=== PATIENT | female | born 1990 | race Caucasian/White ===

== ENCOUNTER 2016-12-05 18:47 | Emergency (ER) | payer MEDICAID ==
[~2016-12-05] VITALS: Ht 170.2 cm; Wt 65.0 kg
[~2016-12-05 18:47] MED LIST: ZOFR4TAB3 SL
[2016-12-05 18:48] VITALS: BP 148/87; PULSE 84; RESP 16; TEMP 98.2; O2SAT 98
== END 2016-12-05 21:32 | disposition left against medical advice (07) ==
LOC: NED 18:47
DX: R30.0 Dysuria (principal); Z53.21 Procedure and treatment not carried out due to patient leaving prior to being seen by health care provider
CPT/HCPCS: 99281

== ENCOUNTER 2016-12-07 13:32 | Emergency (ER) | payer MEDICAID, OTHER ==
[~2016-12-07] VITALS: Ht 167.6 cm; Wt 68.0 kg
--- NOTE | 2016-12-07 13:41 | PD ---
Physical Exam Time Seen by Provider: 13:40 Narrative 26 y/o female here with lower pelvic pain, nausea, vomiting for 2 weeks. Vital signs reviewed. Seen at triage desk. Awaiting bed placement. [facility] Medical Record Reviewed: Yes Supervised Visit with BERNICE: Prince Steven Dec 07, 2016 13:41
--- NOTE | 2016-12-07 14:22 | PD ---
HPI Chief Complaint: Automotive Salesperson Problem/Complaint Time Seen by Provider: 13:59 Travel History International Travel<30 days: No Contact w/Intl Traveler<30days: No Traveled to known affect area: No History of Present Illness HPI The patient is a 26-year-old female who presents to the emergency department for pelvic pain and discharge. The patient is a 2 week history of intermittent pelvic pain which is located in the lower pelvis, nonradiating, sharp to dull, and associated with vaginal discharge. She describes a vaginal discharge is white, milky, with a foul smell. She does have a history of bacterial vaginosis. The patient states she recently had a D&C 4 months ago, was prescribed antibiotics, however, did not take the antibiotics after the . The patient does have a history of bacterial vaginosis with similar symptoms. She denies any dysuria, frequency, or urgency. She also complains of occasional painful intercourse on the left aspect of the pelvis. Symptoms are mild to moderate, there are no current alleviating or exacerbating factors. The patient is Ab1 miscarriage 1. PFSH Past Medical History Diminished Hearing: No Gastrointestinal Disorders: Yes (COLONOSCOPY, CROHNS DISEASE) Psychiatric: Yes (ASPERGERS) Immunizations Current: Yes Tetanus Vaccination: > 5 Years Influenza Vaccination: No ?: Not LMP: IRREGULAR : 3 Para: 1 Miscarriage: 1 Past Surgical History Section: Yes (X2) Social History Alcohol Use: Yes Tobacco Use: Yes Substance Use: No (PT DENIES) Allergies-Medications (Allergen,Severity, Reaction): Coded Allergies: Compazine (Verified Allergy, Intermediate, rash, 12/07/16) Tegretol (Verified Allergy, Unknown, rash, 12/07/16) Clonidine (Verified Adverse Reaction, Intermediate, DIZZY, 12/07/16) DIZZY Reported Meds & Prescriptions Reported Meds & Active Scripts Active No Active Prescriptions or Reported Medications Review of Systems Except as stated in HPI: all other systems reviewed are Neg General / Constitutional: No: Fever, Chills Genitourinary: Positive: Pelvic Pain, Discharge, No: Urgency, Frequency, Dysuria, Vaginal Bleeding Physical Exam Narrative GENERAL: Awake, alert, nontoxic-appearing 26 year-old female who appears her stated age and is in no acute respiratory distress. SKIN: Focused skin assessment warm/dry. HEAD: Atraumatic. Normocephalic. EYES: No injection or drainage. ENT: Moist mucous membranes. NECK: Trachea midline. No JVD. GASTROINTESTINAL: Abdomen soft, non-tender, nondistended. Back: No CVA tenderness. Genitourinary: The exam was performed in the presence of a female nurse. External examination reveals no rashes or lesions. Speculum examination reveals white discharge in vaginal vault which is thin, white. Cervix is closed. No cervical motion tenderness. No adnexal tenderness. MUSCULOSKELETAL: No obvious deformities. No clubbing. No cyanosis. No edema. NEUROLOGICAL: Awake and alert. No obvious cranial nerve deficits. Motor grossly within normal limits. Normal speech. PSYCHIATRIC: Appropriate mood and affect; insight and judgment normal. Data Data Last Documented VS Vital Signs Date Time Temp Pulse Resp B/P Pulse Ox O2 Delivery O2 Flow Rate FiO2 12/07/16 14:05 16 Orders Gc And Chlamydia Pcr (12/07/16 14:15) Wet Prep Profile (12/07/16 14:15) Urinalysis - C+S If Indicated (12/07/16 14:15) Ed Urine Pregnancytest Poc (12/07/16 14:15) Urine Culture (12/07/16 14:10) Labs Laboratory Tests Test 12/07/16 14:10 Urine Color YELLOW Urine Turbidity HAZY Urine pH 6.5 Urine Specific [place] 1.023 Urine Protein TRACE mg/dL Urine Glucose (UA) NEG mg/dL Urine Ketones NEG mg/dL Urine Occult Blood NEG Urine Nitrite NEG Urine Bilirubin NEG Urine Urobilinogen LESS THAN 2.0 MG/DL Urine Leukocyte Esterase SMALL Urine RBC 1 /hpf Urine WBC 18 /hpf Urine Squamous Epithelial 1 /hpf Cells Urine Amorphous Sediment RARE Urine Bacteria FEW /hpf Urine Mucus FEW /lpf Microscopic Urinalysis Comment CULTURE INDICATED Clue Cells (Wet Prep) PRESENT Vaginal Trichomonas (Wet Prep) NONE SEEN Vaginal Yeast (Wet Prep) NONE SEEN MDM Medical Decision Making Medical Screen Exam Complete: Yes Emergency Medical Condition: Yes Medical Record Reviewed: Yes Interpretation(s) Laboratory Tests Test 12/07/16 14:10 Urine Color YELLOW Urine Turbidity HAZY Urine pH 6.5 Urine Specific [place] 1.023 Urine Protein TRACE mg/dL Urine Glucose (UA) NEG mg/dL Urine Ketones NEG mg/dL Urine Occult Blood NEG Urine Nitrite NEG Urine Bilirubin NEG Urine Urobilinogen LESS THAN 2.0 MG/DL Urine Leukocyte Esterase SMALL Urine RBC 1 /hpf Urine WBC 18 /hpf Urine Squamous Epithelial 1 /hpf Cells Urine Amorphous Sediment RARE Urine Bacteria FEW /hpf Urine Mucus FEW /lpf Microscopic Urinalysis Comment CULTURE INDICATED Clue Cells (Wet Prep) PRESENT Vaginal Trichomonas (Wet Prep) NONE SEEN Vaginal Yeast (Wet Prep) NONE SEEN Differential Diagnosis Differential diagnosis includes PID, cervicitis, UTI, ectopic , , vaginitis, bacterial vaginosis, Trichomonas. Narrative Course A UA was sent to lab and bedside UA test was obtained. A pelvic exam was performed and wet prep and gonorrhea/chlamydia were sent to lab. UA reveals 18 WBCs, otherwise unremarkable. Wet prep is positive for clue cells, therefore, checked patient will be treated with Flagyl and Bactrim. The patient states that antibiotics make her nauseated, she is requesting Zofran. Therefore, the patient will be prescribed Zofran. She is advised to follow-up with a card checker. Return if symptoms worsen or progress. Diagnosis Primary Impression: BV (bacterial vaginosis) Additional Impression: UTI (urinary tract infection) Qualified Code: N39.0 - Urinary tract infection without hematuria, site unspecified Patient Instructions: General Instructions Additional Instructions: Medications as directed. No alcohol while taking Flagyl. Plenty fluids to stay hydrated. Follow-up with your primary physician and/or card checker. Med/Other Pt SpecificInfo: Prescription(s) given Scripts Ondansetron Odt (Zofran Odt)4 Mg Tab4 Mg SL Q6HR PRN (Nausea/Vomiting) #5 TAB Ref 0 Prov:Kamron Laurent MD 12/07/16 Metronidazole (Flagyl)500 Mg [id number] Mg PO BID 7 Days Ref 0 Prov:Kamron Laurent MD 12/07/16 Sulfamethoxazole-Trimethoprim (Bactrim DS)800-160 Mg Tab1 Tab PO BID #6 TAB Ref 0 Prov:Kamron Laurent MD 12/07/16 Disposition: 01 DISCHARGE HOME Condition: Stable Kamron Laurent MD Dec 07, 2016 14:22
[2016-12-07 14:53] LABS: BACTERIA, URINE FEW /hpf; BLOOD, URINE NEG (NEG); COMMENT (UR) CULTURE INDICATED; CULTURE IF INDICATED CULTURE INDICATED; GLUCOSE,URINE NEG (NEG); KETONE, URINE NEG (NEG); MUCUS URINE FEW /lpf (OCC); NITRITE,URINE NEG (NEG); PH, URINE 6.5 (5.0-8.5); SQUAMOUS EPITHELIAL CELL URINE 1 /hpf (0-5); URINE COLOR YELLOW (YELLW/STRAW)
[2016-12-07] MEDS ORDERED: BACT800T5 PO (16:07)
[2016-12-07] MEDS ORDERED: METR-1 PO (16:07)
[2016-12-07] MEDS ORDERED: ZOFR4TAB3 SL (16:07)
[2016-12-07 16:57] LABS: CHLAMYDIA PCR NOT DETECTED (NOT DETECT); NEISSERIA PCR NOT DETECTED (NOT DETECT)
== END 2016-12-07 16:47 | disposition home or self-care (01) ==
LOC: NEPD 13:32
DX: N76.0 Acute vaginitis (principal); N39.0 Urinary tract infection, site not specified; B95.1 Streptococcus, group B, as the cause of diseases classified elsewhere; Z72.0 Tobacco use
CPT/HCPCS: 81001; 84703; 86403; 87086; 87210; 87491; 87591; 99284

== ENCOUNTER 2017-02-17 12:57 | Emergency (ER) | payer OTHER ==
[~2017-02-17 12:57] MED LIST changes: +BACT800T5 PO; +METR-1 PO
[2017-02-17 13:00] VITALS: BP 109/70; PULSE 67; RESP 15; TEMP 98.2; O2SAT 99
--- NOTE | 2017-02-17 13:18 | PD ---
Physical Exam Date Seen by Provider: Feb 17, 2017 Time Seen by Provider: 13:17 Narrative 26-year-old female presents to emergency department with reports of 8 weeks , with nausea, vomiting, and not being able to keep anything down. Patient also concerned about abdominal rash which may be an allergy to a cat. Patient has no wheezing or shortness of breath. Vital signs are stable. Patient is awaiting medical bed placement. Data Data Last Documented VS Vital Signs Date Time Temp Pulse Resp B/P (MAP) Pulse Ox O2 Delivery O2 Flow Rate FiO2 02/17/17 13:00 98.2 67 15 109/70 (83) 99 MDM Medical Record Reviewed: Yes Supervised Visit with BERNICE: Yes Condition: Stable Bo Jiménez Feb 17, 2017 13:18
[2017-02-17] MEDS ORDERED: SODIUM CHLOR 0.9% 1000 ML INJ 1,000 ML IV SCH (14:59)
[2017-02-17] MEDS ORDERED: ONDANSETRON HCL 4 MG/2 ML VIAL IVP ONE (15:00)
--- NOTE | 2017-02-17 15:19 | PD ---
HPI Chief Complaint: Related Problem Time Seen by Provider: 14:53 Travel History International Travel<30 days: No Contact w/Intl Traveler<30days: No Traveled to known affect area: No History of Present Illness HPI PATIENT STATES 8 WEEKS PREG OR SO, NO OB DOC YET, BUT IS HERE DUE TO CONSTANT NAUSEA, OCCASIONAL VOMITING WITHOUT DIARRHEA, OR ABD PAIN. DENIES UTI SX WELL. PATIENT DENIES FEVER WELL...NO ALLEVIATING/AGGRAVATING FACTORS. PFSH Past Medical History Diminished Hearing: No Gastrointestinal Disorders: Yes (COLONOSCOPY, CROHNS DISEASE) Psychiatric: Yes (ASPERGERS) Immunizations Current: Yes ?: : 3 Para: 1 Miscarriage: 1 Past Surgical History Section: Yes (X2) Social History Alcohol Use: Yes Tobacco Use: Yes Substance Use: No (PT DENIES) Allergies-Medications (Allergen,Severity, Reaction): Coded Allergies: prochlorperazine (Unverified Allergy, Intermediate, rash, 01/11/17) carbamazepine (Unverified Allergy, Unknown, rash, 01/11/17) penicillin G (Verified Allergy, Unknown, 02/17/17) clonidine (Unverified Adverse Reaction, Intermediate, DIZZY, 01/11/17) DIZZY Reported Meds & Prescriptions Reported Meds & Active Scripts Active Zofran Odt (Ondansetron Odt) 4 Mg Tab 4 Mg SL Q6HR PRN Review of Systems Except as stated in HPI: all other systems reviewed are Neg Gastrointestinal: Positive: Nausea Physical Exam Narrative GENERAL: SKIN: Warm and dry. HEAD: Atraumatic. Normocephalic. EYES: Pupils equal and round. No scleral icterus. No injection or drainage. ENT: No nasal bleeding or discharge. Mucous membranes pink and moist. NECK: Trachea midline. No JVD. CARDIOVASCULAR: Regular rate and rhythm. RESPIRATORY: No accessory muscle use. Clear to auscultation. Breath sounds equal bilaterally. GASTROINTESTINAL: Abdomen soft, non-tender, nondistended. MUSCULOSKELETAL: Extremities without clubbing, cyanosis, or edema. No obvious deformities. NEUROLOGICAL: Awake and alert. No obvious cranial nerve deficits. Motor grossly within normal limits. Five out of 5 muscle strength in the arms and legs. Normal speech. PSYCHIATRIC: Appropriate mood and affect; insight and judgment normal. Data Data Last Documented VS Vital Signs Date Time Temp Pulse Resp B/P (MAP) Pulse Ox O2 Delivery O2 Flow Rate FiO2 02/17/17 13:00 98.2 67 15 109/70 (83) 99 Orders Orders Beta Hcg (Quant/Titer) (02/17/17 14:59) Complete Blood Count With Diff (02/17/17 14:59) Comprehensive Metabolic Panel (02/17/17 14:59) Lipase (02/17/17 14:59) Urinalysis - C+S If Indicated (02/17/17 14:59) Iv Access Insert/Monitor (02/17/17 14:59) Ecg Monitoring (02/17/17 14:59) Oximetry (02/17/17 14:59) Ondansetron Inj (Zofran Inj) (02/17/17 15:00) Sodium Chlor 0.9% 1000 Ml Inj (Ns 1000 M (02/17/17 14:59) Labs Laboratory Tests Test 02/17/17 15:10 02/17/17 15:15 White Blood Count 8.0 TH/MM3 Red Blood Count 4.15 MIL/MM3 Hemoglobin 12.8 GM/DL Hematocrit 38.7 % Mean Corpuscular Volume 93.3 FL Mean Corpuscular Hemoglobin 30.8 PG Mean Corpuscular Hemoglobin Concent 33.1 % Red Cell Distribution Width 12.1 % Platelet Count 196 TH/MM3 Mean Platelet Volume 9.7 FL Neutrophils (%) (Auto) 77.6 % Lymphocytes (%) (Auto) 15.6 % Monocytes (%) (Auto) 5.9 % Eosinophils (%) (Auto) 0.6 % Basophils (%) (Auto) 0.3 % Neutrophils # (Auto) 6.2 TH/MM3 Lymphocytes # (Auto) 1.2 TH/MM3 Monocytes # (Auto) 0.5 TH/MM3 Eosinophils # (Auto) 0.1 TH/MM3 Basophils # (Auto) 0.0 TH/MM3 CBC Comment DIFF FINAL Differential Comment Blood Urea Nitrogen 10 MG/DL Creatinine 0.67 MG/DL Random Glucose 108 MG/DL Total Protein 6.9 GM/DL Albumin 3.4 GM/DL Calcium Level 8.6 MG/DL Alkaline Phosphatase 50 U/L Aspartate Amino Transf (AST/SGOT) 13 U/L Alanine Aminotransferase (ALT/SGPT) 22 U/L Total Bilirubin 0.3 MG/DL Sodium Level 139 MEQ/L Potassium Level 3.5 MEQ/L Chloride Level 107 MEQ/L Carbon Dioxide Level 25.2 MEQ/L Anion Gap 7 MEQ/L Estimat Glomerular Filtration Rate 106 ML/MIN Lipase 96 U/L Human Chorionic Gonadotropin, Quant [id number] MIU/ML Urine Color YELLOW Urine Turbidity CLOUDY Urine pH 5.5 Urine Specific [place] 1.026 Urine Protein TRACE mg/dL Urine Glucose (UA) NEG mg/dL Urine Ketones NEG mg/dL Urine Occult Blood NEG Urine Nitrite NEG Urine Bilirubin NEG Urine Urobilinogen LESS THAN 2.0 MG/DL Urine Leukocyte Esterase SMALL Urine RBC LESS THAN 1 /hpf Urine WBC 3 /hpf Urine Squamous Epithelial Cells 70 /hpf Urine Bacteria OCC /hpf Urine Mucus MOD /lpf Microscopic Urinalysis Comment CULT NOT INDICATED MDM Medical Decision Making Medical Screen Exam Complete: Yes Emergency Medical Condition: Yes Medical Record Reviewed: Yes Differential Diagnosis HELLP V PREECLAMPSIA V ECLAMPSIA V RELATED NAUSEA V HYPEREMESIS GRAVIDARUM Narrative Course PATIENT ON EVALUATION WAS FOUND TO HAVE NL LFT'S , NL RENAL, NO ELECTROLYTES, PATIENT IS MOST LIKELY EXPERIENCING RELATED NAUSEA Diagnosis Primary Impression: RELATED NAUSEA Patient Instructions: General Instructions, Nausea and Vomiting in ( ED) Scripts Ondansetron Odt (Zofran Odt) 4 Mg Tab 4 MG SL Q6HR Y for Nausea/Vomiting, #30 TAB 0 Refills Prov: Enmanuel Acuña MD 02/17/17 Disposition: 01 DISCHARGE HOME Condition: Stable Enmanuel Acuña MD Feb 17, 2017 15:19
[2017-02-17 15:38] LABS: AUTOMATED NEUTROPHIL # 6.2 TH/MM3 (1.8-7.7); BASOPHIL % 0.3 % (0.0-2.0); EOSINOPHIL # 0.1 TH/MM3 (0-0.4); EOSINOPHIL % 0.6 % (0.0-4.0); HEMATOCRIT 38.7 % (35.0-46.0); HEMO FLAGS DIFF FINAL; LYMPH % 15.6 % (9.0-44.0); LYMPHOCYTE # 1.2 TH/MM3 (1.0-4.8); MEAN CELL VOLUME 93.3 FL (80.0-100.0); MEAN CORPUSCULAR HEMOGLOBIN 30.8 PG (27.0-34.0); MEAN CORPUSCULAR HGB CONC 33.1 % (32.0-36.0); MONO % 5.9 % (0.0-8.0); NEUT % 77.6 % (16.0-70.0); PLATELET COUNT 196 TH/MM3 (150-450); RED BLOOD COUNT 4.15 MIL/MM3 (4.00-5.30); RED CELL DISTRIBUTION WIDTH 12.1 % (11.6-17.2)
[2017-02-17 15:40] LABS: BACTERIA, URINE OCC /hpf; BLOOD, URINE NEG (NEG); COMMENT (UR) CULT NOT INDICATED; CULTURE IF INDICATED CULT NOT INDICATED; GLUCOSE,URINE NEG (NEG); KETONE, URINE NEG (NEG); MUCUS URINE MOD /lpf (OCC); NITRITE,URINE NEG (NEG); PH, URINE 5.5 (5.0-8.5); SQUAMOUS EPITHELIAL CELL URINE 70 /hpf (0-5); URINE COLOR YELLOW (YELLW/STRAW)
[2017-02-17 16:05] LABS: ALT (GPT) 22 U/L (10-53); ANION GAP 7 MEQ/L (5-15); AST (GOT) 13 U/L (15-37); BICARBONATE 25.2 MEQ/L (21.0-32.0); BLOOD UREA NITROGEN 10 MG/DL (7-18); CHLORIDE 107 MEQ/L (98-107); GLOMERULAR FILTRATION RATE 106 ML/MIN (>89); POTASSIUM 3.5 MEQ/L (3.5-5.1); SODIUM (NA) 139 MEQ/L (136-145)
[2017-02-17] MEDS ORDERED: ZOFR4TAB3 SL (16:11)
[2017-02-17 16:22] LABS: ALKALINE PHOSPHATASE 50 U/L (45-117); BETA HCG QUANT 163190 MIU/ML (0-5); TOTAL BILIRUBIN ADULT 0.3 MG/DL (0.2-1.0)
== END 2017-02-17 16:59 | disposition home or self-care (01) ==
LOC: NEPD 12:57
DX: O21.9 Vomiting of pregnancy, unspecified (principal); O99.611 Diseases of the digestive system complicating pregnancy, first trimester; K50.90 Crohn's disease, unspecified, without complications; F84.5 Asperger's syndrome; Z3A.08 8 weeks gestation of pregnancy; Z34.91 Encounter for supervision of normal pregnancy, unspecified, first trimester
CPT/HCPCS: 80053; 81001; 83690; 84702; 85025; 96374; 99283; J2405; J7030

== ENCOUNTER 2017-03-04 19:23 | Emergency (ER) | payer OTHER ==
[~2017-03-04] VITALS: Ht 167.6 cm; Wt 66.0 kg
[~2017-03-04 19:23] MED LIST changes: -BACT800T5 PO; -METR-1 PO
[2017-03-04 19:28] VITALS: BP 117/69; PULSE 83; RESP 16; TEMP 98.9; O2SAT 98
[2017-03-04] MEDS ORDERED: SODIUM CHLOR 0.9% 1000 ML INJ 1,000 ML IV SCH (20:58)
[2017-03-04] MEDS ORDERED: PROMETHAZINE INJ 25 MG/ML VIAL IM ONE (21:00)
[2017-03-04] MEDS ORDERED: SODIUM CHLORIDE 0.9% FLUSH 10 ML FLUSH IV FLUSH PRN (21:00)
--- NOTE | 2017-03-04 21:06 | PD ---
HPI Chief Complaint: GI Complaint Time Seen by Provider: 20:58 Travel History International Travel<30 days: No Contact w/Intl Traveler<30days: No Traveled to known affect area: No History of Present Illness HPI 26-year-old female patient with history of Crohn's disease, currently 10 weeks , presents to the ER today for ongoing problems with nausea and vomiting , vomiting 2-3 times a day. She denies any fevers, abdominal pains, urinary symptoms, or other symptoms. She states that she has been given Zofran for this issue in the past but is not working well. She has not yet connected with a HEALTH SCIENCES DEPARTMENT CHAIR. Modifying Factors: None Associated Signs & Symptoms: , vomiting Risk Factors: Crohn's disease PFSH Past Medical History Diminished Hearing: No Gastrointestinal Disorders: Yes (COLONOSCOPY, CROHNS DISEASE) Psychiatric: Yes (ASPERGERS) Immunizations Current: Yes ?: : 3 Para: 1 Miscarriage: 1 Past Surgical History Surgical History: No Previous Surgery Section: Yes (X2) Social History Alcohol Use: Yes Tobacco Use: Yes Substance Use: No (PT DENIES) Allergies-Medications (Allergen,Severity, Reaction): Coded Allergies: prochlorperazine (Unverified Allergy, Intermediate, rash, 03/04/17) carbamazepine (Unverified Allergy, Unknown, rash, 03/04/17) penicillin G (Verified Allergy, Unknown, 03/04/17) clonidine (Unverified Adverse Reaction, Intermediate, DIZZY, 03/04/17) DIZZY Reported Meds & Prescriptions Reported Meds & Active Scripts Active Review of Systems Except as stated in HPI: all other systems reviewed are Neg Physical Exam Narrative GENERAL: Well-developed young white female patient currently in mild distress. Awake and oriented 3. SKIN: Focused skin assessment warm/dry. HEAD: Atraumatic. Normocephalic. EYES: Pupils equal and round. No scleral icterus. No injection or drainage. ENT: No nasal bleeding or discharge. Mucous membranes pink and moist. NECK: Trachea midline. No JVD. CARDIOVASCULAR: Regular rate and rhythm. No murmur appreciated. RESPIRATORY: No accessory muscle use. Clear to auscultation. Breath sounds equal bilaterally. GASTROINTESTINAL: Abdomen soft, non-tender, nondistended. Hepatic and splenic margins not palpable. MUSCULOSKELETAL: No obvious deformities. No clubbing. No cyanosis. No edema. NEUROLOGICAL: Awake and alert. No obvious cranial nerve deficits. Motor grossly within normal limits. Normal speech. PSYCHIATRIC: Appropriate mood and affect; insight and judgment normal. Data Data Last Documented VS Vital Signs Date Time Temp Pulse Resp B/P (MAP) Pulse Ox O2 Delivery O2 Flow Rate FiO2 03/04/17 19:28 98.9 83 16 117/69 (85) 98 Room Air Orders Orders Complete Blood Count With Diff (03/04/17 20:58) Comprehensive Metabolic Panel (03/04/17 20:58) Lipase (03/04/17 20:58) Urinalysis - C+S If Indicated (03/04/17 20:58) Iv Access Insert/Monitor (03/04/17 20:58) Ecg Monitoring (03/04/17 20:58) Oximetry (03/04/17 20:58) Sodium Chlor 0.9% 1000 Ml Inj (Ns 1000 M (03/04/17 20:58) Sodium Chloride 0.9% Flush (Ns Flush) (03/04/17 21:00) Promethazine Inj (Phenergan Inj) (03/04/17 21:00) Labs Laboratory Tests Test 03/04/17 21:10 White Blood Count 8.6 TH/MM3 Red Blood Count 4.35 MIL/MM3 Hemoglobin 14.0 GM/DL Hematocrit 40.2 % Mean Corpuscular Volume 92.6 FL Mean Corpuscular Hemoglobin 32.1 PG Mean Corpuscular Hemoglobin Concent 34.7 % Red Cell Distribution Width 12.0 % Platelet Count 210 TH/MM3 Mean Platelet Volume 9.7 FL Neutrophils (%) (Auto) 73.9 % Lymphocytes (%) (Auto) 17.4 % Monocytes (%) (Auto) 7.5 % Eosinophils (%) (Auto) 0.9 % Basophils (%) (Auto) 0.3 % Neutrophils # (Auto) 6.4 TH/MM3 Lymphocytes # (Auto) 1.5 TH/MM3 Monocytes # (Auto) 0.6 TH/MM3 Eosinophils # (Auto) 0.1 TH/MM3 Basophils # (Auto) 0.0 TH/MM3 CBC Comment DIFF FINAL Differential Comment Urine Color YELLOW Urine Turbidity CLEAR Urine pH 5.5 Urine Specific [place] 1.025 Urine Protein NEG mg/dL Urine Glucose (UA) NEG mg/dL Urine Ketones NEG mg/dL Urine Occult Blood NEG Urine Nitrite NEG Urine Bilirubin NEG Urine Urobilinogen LESS THAN 2.0 MG/DL Urine Leukocyte Esterase NEG Urine WBC 1 /hpf Urine Squamous Epithelial Cells 5 /hpf Urine Bacteria RARE /hpf Urine Mucus FEW /lpf Microscopic Urinalysis Comment CULT NOT INDICATED Blood Urea Nitrogen 12 MG/DL Creatinine 0.61 MG/DL Random Glucose 77 MG/DL Total Protein 7.8 GM/DL Albumin 3.8 GM/DL Calcium Level 9.2 MG/DL Alkaline Phosphatase 59 U/L Aspartate Amino Transf (AST/SGOT) 15 U/L Alanine Aminotransferase (ALT/SGPT) 19 U/L Total Bilirubin 0.2 MG/DL Sodium Level 137 MEQ/L Potassium Level 3.5 MEQ/L Chloride Level 105 MEQ/L Carbon Dioxide Level 24.3 MEQ/L Anion Gap 8 MEQ/L Estimat Glomerular Filtration Rate 118 ML/MIN Lipase 113 U/L MDM Medical Decision Making Medical Screen Exam Complete: Yes Emergency Medical Condition: Yes Medical Record Reviewed: Yes Interpretation(s) Laboratory Tests Test 03/04/17 21:10 Neutrophils (%) (Auto) 73.9 % (16.0-70.0) Urine Bacteria RARE /hpf (NONE) Urine Mucus FEW /lpf (OCC) Differential Diagnosis Nausea and vomiting: Dehydration versus metabolic issues versus hyperemesis gravidarum versus gastroenteritis Narrative Course Lab work did not show any signs of metabolic issues or significant dehydration. Abdomen is benign. Transabdominal ultrasound done by me shows IUP with good heart tones. Patient is given IV fluids in the ER. Vital signs are stable in the ER and she did not have any vomiting episodes in the ER. At this point, my plan would be to release her with follow-up to HEALTH SCIENCES DEPARTMENT CHAIR. We will give her Phenergan. Return for any worsening in symptoms as necessary. The plan has been discussed with her and she states understanding. Diagnosis Primary Impression: Hyperemesis gravidarum Med/Other Pt SpecificInfo: Prescription(s) given Scripts Promethazine (Phenergan) 25 Mg Tablet 25 MG PO Q6H Y for NAUSEA OR VOMITING, #20 TAB 0 Refills Prov: Joanne Francisco MD 03/04/17 Disposition: 01 DISCHARGE HOME Condition: Stable Joanne Francisco MD Mar 04, 2017 21:06
[2017-03-04 21:52] LABS: BACTERIA, URINE RARE /hpf; BLOOD, URINE NEG (NEG); COMMENT (UR) CULT NOT INDICATED; CULTURE IF INDICATED CULT NOT INDICATED; GLUCOSE,URINE NEG (NEG); KETONE, URINE NEG (NEG); MUCUS URINE FEW /lpf (OCC); NITRITE,URINE NEG (NEG); PH, URINE 5.5 (5.0-8.5); SQUAMOUS EPITHELIAL CELL URINE 5 /hpf (0-5); URINE COLOR YELLOW (YELLW/STRAW)
[2017-03-04 21:58] LABS: AUTOMATED NEUTROPHIL # 6.4 TH/MM3 (1.8-7.7); BASOPHIL % 0.3 % (0.0-2.0); EOSINOPHIL # 0.1 TH/MM3 (0-0.4); EOSINOPHIL % 0.9 % (0.0-4.0); HEMATOCRIT 40.2 % (35.0-46.0); HEMO FLAGS DIFF FINAL; LYMPH % 17.4 % (9.0-44.0); LYMPHOCYTE # 1.5 TH/MM3 (1.0-4.8); MEAN CELL VOLUME 92.6 FL (80.0-100.0); MEAN CORPUSCULAR HEMOGLOBIN 32.1 PG (27.0-34.0); MEAN CORPUSCULAR HGB CONC 34.7 % (32.0-36.0); MONO % 7.5 % (0.0-8.0); NEUT % 73.9 % (16.0-70.0); PLATELET COUNT 210 TH/MM3 (150-450); RED BLOOD COUNT 4.35 MIL/MM3 (4.00-5.30); WHITE BLOOD COUNT 8.6 TH/MM3 (4.0-11.0)
[2017-03-04 22:05] LABS: ANION GAP 8 MEQ/L (5-15); AST (GOT) 15 U/L (15-37); BICARBONATE 24.3 MEQ/L (21.0-32.0); BLOOD UREA NITROGEN 12 MG/DL (7-18); CHLORIDE 105 MEQ/L (98-107); GLOMERULAR FILTRATION RATE 118 ML/MIN (>89); POTASSIUM 3.5 MEQ/L (3.5-5.1); SODIUM (NA) 137 MEQ/L (136-145)
[2017-03-04 22:06] LABS: ALT (GPT) 19 U/L (10-53)
[2017-03-04 22:08] LABS: ALKALINE PHOSPHATASE 59 U/L (45-117); TOTAL BILIRUBIN ADULT 0.2 MG/DL (0.2-1.0)
[2017-03-04] MEDS ORDERED: PROM25TA10 PO (22:22)
== END 2017-03-04 23:31 | disposition home or self-care (01) ==
LOC: NEPC 19:23
DX: O21.0 Mild hyperemesis gravidarum (principal); O99.611 Diseases of the digestive system complicating pregnancy, first trimester; K50.90 Crohn's disease, unspecified, without complications; O99.341 Other mental disorders complicating pregnancy, first trimester; F84.5 Asperger's syndrome; O99.331 Smoking (tobacco) complicating pregnancy, first trimester; F17.200 Nicotine dependence, unspecified, uncomplicated; Z3A.10 10 weeks gestation of pregnancy; Z88.0 Allergy status to penicillin
CPT/HCPCS: 80053; 81001; 83690; 85025; 96360; 96372; 99284; J2550; J7030

== ENCOUNTER 2017-09-20 08:39 | Inpatient (IN) | payer OTHER ==
[~2017-09-20] VITALS: Ht 167.6 cm; Wt 79.0 kg
[~2017-09-20 08:39] MED LIST changes: +PREN1CAP7 PO; +RANI150T PO; -ZOFR4TAB3 SL
[2017-09-20] MEDS ORDERED: LACTATED RINGER'S 1000 ML INJ 1,000 ML IV ONE (09:27)
--- NOTE | 2017-09-20 09:38 | HHI.HP ---
HPI Travel History International Travel<30 Days: No Contact w/Intl Traveler<30Days: No History of Present Illness HPI 27-year-old female at 39 weeks (ILIA: 09/27/17) presents to the OB floor for scheduled repeat . [facility] Patient has had 3 previous . GBS negative. Denies leakage of fluid, dysuria, vaginal bleeding, contractions. Endorses good movements. Patient reports smoking 2-3 cigarettes per day and the first 5 months of . Denies alcohol and other illicit drug use. History Past Medical History Medical History: Denies Significant Hx Obstetric History Obstetric History 3 previous C-sections 1 miscarriage 1 Past Surgical History Narrative Surgical 3 previous C-sections Family History Family History: Negative Social History Alcohol Use: No Tobacco Use: Yes (2-3 cigarettes per day for the first 5 months of ) Substance Abuse: No Allergies-Medications (Allergen,Severity, Reaction): Coded Allergies: prochlorperazine (Unverified Allergy, Intermediate, rash, 06/07/17) carbamazepine (Unverified Allergy, Unknown, rash, 06/07/17) penicillin G (Verified Allergy, Unknown, 06/07/17) clonidine (Unverified Adverse Reaction, Intermediate, DIZZY, 06/07/17) DIZZY Home Meds Active Scripts Ranitidine (Ranitidine) 150 Mg Tab, 150 MG PO DAILY for Heartburn Management, # 30 TAB 1 Refill Prov:Xu Diallo MD 06/07/17 W/O Vit A W/ Fe Fumar (Citranatal [place]) 27-1-260 Mg Cap, 1 CAP PO DAILY for Nutritional Supplement, #30 CAP 3 Refills Prov:Kimi Reveles CNM [facility] 04/05/17 Review of Systems Except as stated in HPI: all other systems reviewed are Neg Physical Exam Narrative GENERAL: Well-nourished, well-developed patient. SKIN: Warm and dry. HEAD: Normocephalic and atraumatic. EYES: No scleral icterus. No injection or drainage. ENT: No nasal drainage noted. Mucous membranes pink. Airway patent. NECK: Supple, trachea midline. No JVD. CARDIOVASCULAR: Regular rate and rhythm without murmurs, gallops, or rubs. RESPIRATORY: Breath sounds equal bilaterally. No accessory muscle use. ABDOMEN/GI: Abdomen soft, non-tender, bowel sounds present, no rebound, no guarding FHT's: Category: 1 Baseline: 130s Reactive: yes Variability: moderate Decels: none EXTREMITIES: No cyanosis or edema. BACK: Nontender without obvious deformity. NEUROLOGICAL: Awake and alert. Motor and sensory grossly within normal limits. Five out of 5 muscle strength in all muscle groups. Normal speech. Caprini VTE Risk Assessment Caprini VTE Risk Assessment: No/Low Risk (score <= 1) Caprini Risk Assessment Model Point Value = 1 Point Value = 2 Point Value = 3 Point Value = 5 Age 41-60 Minor surgery BMI > 25 kg/m2 Swollen legs Varicose veins or History of unexplained or recurrent spontaneous Oral contraceptives or hormone replacement Sepsis (< 1 month) Serious lung disease, including pneumonia (< 1 month) Abnormal pulmonary function Acute myocardial infarction Congestive heart failure (< 1 month) History of inflammatory bowel disease Medical patient at bed rest Age 61-74 Arthroscopic surgery Major open surgery (> 45 min) Laparoscopic surgery (> 45 min) Malignancy Confined to bed (> 72 hours) Immobilizing plaster cast Central venous access Age >= 75 History of VTE Family history of VTE Factor V Leiden Prothrombin [id number] Lupus anticoagulant Anticardiolipin antibodies Elevated serum homocysteine Heparin-induced thrombocytopenia Other congenital or acquired thrombophilia Stroke (< 1 month) Elective arthroplasty Hip, pelvis, or leg fracture Acute spinal cord injury (< 1 month) Prophylaxis Regimen Total Risk Factor Score Risk Level Prophylaxis Regimen 0-1 Low Early ambulation 2 Moderate Order ONE of the following: *Sequential Compression Device (SCD) *Heparin 5000 units SQ BID 3-4 Higher Order ONE of the following medications: *Heparin 5000 units SQ TID *Enoxaparin/Lovenox 40 mg SQ daily (WT < 150 kg, CrCl > 30 mL/min) *Enoxaparin/Lovenox 30 mg SQ daily (WT < 150 kg, CrCl > 10-29 mL/min) *Enoxaparin/Lovenox 30 mg SQ BID (WT < 150 kg, CrCl > 30 mL/min) AND/OR *Sequential Compression Device (SCD) 5 or more Highest Order ONE of the following medications: *Heparin 5000 units SQ TID (Preferred with Epidurals) *Enoxaparin/Lovenox 40 mg SQ daily (WT < 150 kg, CrCl > 30 mL/min) *Enoxaparin/Lovenox 30 mg SQ daily (WT < 150 kg, CrCl > 10-29 mL/min) *Enoxaparin/Lovenox 30 mg SQ BID (WT < 150 kg, CrCl > 30 mL/min) AND *Sequential Compression Device (SCD) Data Data Vital Signs Reviewed: Yes Orders Orders Admit To Inpatient (09/20/17 ) Code Status (09/20/17 09:27) Vital Signs (Adult) .ON ADMISSION (09/20/17 09:27) Activity Oob Ad Chhaya (09/20/17 09:27) Heart (09/20/17:27) Urinary Catheter Management BABAR.Q8H (09/20/17:27) ^ Preps (09/20/17:27) Scd / Jonny / Foot Pump BABAR.QSHIFT (09/20/17 09:27) ^ Ultrasound For Locatio (09/20/17 09:27) Diet Npo (09/20/17 Breakfast) Lactated Ringer's 1000 Ml Inj (Lr 1000 M (09/20/17 09:27) Lactated Ringer's 1000 Ml Inj (Lr 1000 M (09/20/17 09:57) Citric Acid-Sodium Citrate Liq (Bicitra (09/20/17 11:00) Type And Screen (09/20/17 09:27) Complete Blood Count With Diff (09/20/17 09:27) Urinalysis - C+S If Indicated (09/20/17 09:27) Drug Screen, Random Urine (09/20/17 09:27) Inpatient Certification (09/20/17 ) Specimen To Be Collected PRN (09/20/17 09:27) Specimen To Be Collected PRN (09/20/17 09:27) Comprehensive Metabolic Panel (09/20/17 09:27) Group B Strep: Negative Assessment/Plan Assessment and Plan 27-year-old female at 39 weeks (ILIA: 09/27/17) presents to the OB floor for scheduled repeat . 1. Intrauterine Category 1, baseline 130s, reactive, moderate variability, reassuring -patient here for scheduled repeat -GBS negative sdw Dr. Freitas and Chacha Allen MD R1 Sep 20, 2017 09:38
[2017-09-20] MEDS ORDERED: ceFAZolin 2 GM PREMIX 50 ML IV SCH (09:45)
[2017-09-20 09:48] LABS: AUTOMATED NEUTROPHIL # 4.4 TH/MM3 (1.8-7.7); BASOPHIL % 0.7 % (0.0-2.0); EOSINOPHIL # 0.1 TH/MM3 (0-0.4); EOSINOPHIL % 1.2 % (0.0-4.0); HEMOGLOBIN 10.9 GM/DL (11.6-15.3); LYMPH % 20.5 % (9.0-44.0); LYMPHOCYTE # 1.3 TH/MM3 (1.0-4.8); MEAN CELL VOLUME 83.5 FL (80.0-100.0); MEAN CORPUSCULAR HEMOGLOBIN 27.5 PG (27.0-34.0); MEAN PLATELET VOLUME 10.9 FL (7.0-11.0); MONO % 10.4 % (0.0-8.0); MONOCYTE # 0.7 TH/MM3 (0-0.9); NEUT % 67.2 % (16.0-70.0); PLATELET COUNT 195 TH/MM3 (150-450); RED BLOOD COUNT 3.96 MIL/MM3 (4.00-5.30); RED CELL DISTRIBUTION WIDTH 13.5 % (11.6-17.2); WHITE BLOOD COUNT 6.5 TH/MM3 (4.0-11.0)
[2017-09-20 09:51] LABS: BACTERIA, URINE RARE /hpf; BILIRUBIN, URINE NEG (NEG); BLOOD, URINE NEG (NEG); GLUCOSE,URINE NEG (NEG); KETONE, URINE NEG (NEG); MUCUS URINE FEW /lpf (OCC); NITRITE,URINE NEG (NEG); PH, URINE 7.5 (5.0-8.5); SQUAMOUS EPITHELIAL CELL URINE 2 /hpf (0-5); URINE COLOR YELLOW (YELLW/STRAW); URINE LEUKOCYTE ESTERASE NEG (NEG)
[2017-09-20] MEDS ORDERED: LACTATED RINGER'S 1000 ML INJ 1,000 ML IV SCH ×2 (09:57→17:09)
[2017-09-20] MEDS ORDERED: MORPHINE SULFATE PF 5 MG/10 ML VIAL ONE (10:27)
[2017-09-20] MEDS ORDERED: ACETAMINOPHEN 1000 MG/100 ML 100 ML IV ONE (10:27)
[2017-09-20] MEDS ORDERED: CITRIC ACID-SODIUM CITRATE LIQ 30 ML UDC PO SCH (11:00)
[2017-09-20] MEDS ORDERED: DOCUSATE SODIUM 50 MG/SENNA 8.6 MG TAB PO PRN (12:15)
[2017-09-20] MEDS ORDERED: SODIUM CHLORIDE 0.9% FLUSH 10 ML FLUSH IV FLUSH PRN (12:15)
[2017-09-20] MEDS ORDERED: ZOLPIDEM TARTRATE 5 MG TAB PO PRN (12:15)
[2017-09-20] MEDS ORDERED: KETOROLAC TROMETHAMINE 60 MG/2 ML (IM) VIAL IM PRN ×2 (12:15)
[2017-09-20] MEDS ORDERED: OXYTOCIN 30 UNITS-500ML PREMIX 500 ML IV ONE (12:15)
[2017-09-20] MEDS ORDERED: ACETAMINOPHEN 325 MG TAB PO PRN (12:15)
[2017-09-20] MEDS ORDERED: ONDANSETRON HCL 4 MG/2 ML VIAL IV PUSH PRN (12:15)
--- NOTE | 2017-09-20 12:25 | PD.OP ---
Operative Report Date of Surgery: Sep 20, 2017 Preoperative Diagnosis: Postoperative Diagnosis: Procedure: Repeat Low Transverse Section Anesthesia: Spinal Surgeon: Zeyad Alvarez MD Electronic Coils Supervisor(s): Jenifer Cade Resident Surgeon: Chelsi Haynes MD Operation and Findings: PREOPERATIVE DIAGNOSIS: Intrauterine at 39-0/7 weeks gestation. History of delivery x 2. POSTOPERATIVE DIAGNOSIS: Intrauterine at 39-0/7 weeks gestation. History of delivery x 2. PROCEDURE: Repeat low transverse delivery via Pfannenstiel skin incision. SURGEON: Zeyad Alvarez MD and Cehlsi Haynes MD TRIM MASTER OPERATOR: Staff. ESTIMATED BLOOD LOSS: 600 mL. URINE OUTPUT: Clear urine throughout the procedure. COMPLICATIONS: None. ANESTHESIA: Spinal anesthesia. FINDINGS: Viable infant female with Apgars 8/9 and weight 3570g. Normal tubes and ovaries noted at the time of the procedure. PROCEDURE: The patient was taken to the operating room with IV fluids running. The patient received 2 grams of Ancef prior to the procedure. Spinal anesthesia was applied and found to be adequate. She was prepped and draped in a dorsal supine position with a leftward tilt. She was identified as Loulou Bryson. A Pfannenstiel skin incision was performed, carried down to the underlying layer of fascia with the Bovie. The fascia was incised in the midline and extended laterally. Stacie clamps were used to grasp the superior aspect of the fascial incision. The underlying rectus muscles were dissected with the Bovie. The parietal peritoneum was identified and entered bluntly and extended superiorly and inferiorly with good visualization of the bladder. The scalpel was used to perform a transverse incision in the lower uterine segment. This was extended bluntly. The infant was noted to be in the cephalic position, the infant's head was delivered without difficulty, and then the rest of the infant was delivered without difficulty or trauma. Delayed cord clamping was performed. was handed to the awaiting resuscitation team. Cord bloods were obtained. The placenta was then delivered. The uterus was then exteriorized and cleared of all clots and debris. The uterine incision was closed with #1 Vicryl in a running fashion. A second #1 Vicryl was used to perform an imbricating layer. Excellent hemostasis was noted. The bladder flap was then reapproximated with a 2-0 plain gut suture in a running fashion. The uterus was returned to the pelvis. Irrigation was performed in the pelvis and the pericolic gutters and they were cleared of all clots and debris. The uterine incision again was noted to be hemostatic. The parietal peritoneum was reapproximated with 2-0 plain gut suture in a running fashion. Subfascial tissues were noted to be hemostatic. The rectus fascia was closed with an 0 PDS suture in a running fashion. Subcuticular tissues were noted to be hemostatic. The subcuticular layer was reapproximated with #4 Vicryl in a running fashion. Sponge, lap and needle counts were correct x 2. She was transferred to PACU in stable condition. Chelsi Haynes MD R3 Sep 20, 2017 12:25
[2017-09-20 14:40] VITALS: BP 116/88; PULSE 53; RESP 18
[2017-09-20 15:21] VITALS: BP 112/64; PULSE 57; RESP 16; TEMP 97.5
[2017-09-20] MEDS ORDERED: OXYTOCIN 30 UNITS-500ML PREMIX 500 ML IV PRN (17:15)
[2017-09-20 19:56] VITALS: BP 105/55; PULSE 67; RESP 18; TEMP 98.1
[2017-09-20 20:50] VITALS: RESP 18
[2017-09-20] MEDS: oxyCODONE/ACETAMINOPHEN 5 MG/325 MG TAB PO PRN (20:50)
[2017-09-20] MEDS: IBUPROFEN 600 MG TAB PO PRN (20:50)
[2017-09-20] MEDS: SODIUM CHLORIDE 0.9% FLUSH 10 ML FLUSH IV FLUSH SCH (21:00)
[2017-09-20 21:36] VITALS: RESP 18
[2017-09-20 22:36] VITALS: RESP 18
[2017-09-21 00:06] VITALS: BP 127/76; PULSE 65; RESP 18; TEMP 97.7
[2017-09-21] MEDS: oxyCODONE/ACETAMINOPHEN 5 MG/325 MG TAB PO PRN ×5 (01:11→21:56)
[2017-09-21] MEDS: SIMETHICONE 80 MG CHEWABLE TAB PO PRN ×2 (01:11→21:56)
[2017-09-21 03:00] VITALS: RESP 16
[2017-09-21 04:06] VITALS: BP 110/69; PULSE 56; RESP 18; TEMP 98
[2017-09-21 05:40] VITALS: RESP 16
[2017-09-21 06:07] LABS: BASOPHIL # 0.1 TH/MM3 (0-0.2); BASOPHIL % 0.4 % (0.0-2.0); EOSINOPHIL % 0.1 % (0.0-4.0); HEMATOCRIT 31.4 % (35.0-46.0); HEMOGLOBIN 10.4 GM/DL (11.6-15.3); LYMPH % 11.9 % (9.0-44.0); LYMPHOCYTE # 1.5 TH/MM3 (1.0-4.8); MEAN CELL VOLUME 84.6 FL (80.0-100.0); MEAN CORPUSCULAR HGB CONC 33.1 % (32.0-36.0); MEAN PLATELET VOLUME 10.6 FL (7.0-11.0); MONO % 9.7 % (0.0-8.0); MONOCYTE # 1.2 TH/MM3 (0-0.9); NEUT % 77.9 % (16.0-70.0); PLATELET COUNT 177 TH/MM3 (150-450); RED BLOOD COUNT 3.71 MIL/MM3 (4.00-5.30); RED CELL DISTRIBUTION WIDTH 13.1 % (11.6-17.2); WHITE BLOOD COUNT 12.9 TH/MM3 (4.0-11.0)
[2017-09-21 07:50] VITALS: BP 111/64; PULSE 65; RESP 16; TEMP 98.1
[2017-09-21] MEDS: IBUPROFEN 600 MG TAB PO PRN ×3 (07:52→21:59)
--- NOTE | 2017-09-21 08:41 | HHI.OB ---
Subjective Post Operative Day: 1 Remarks Patient seen and examined this morning. Afebrile, vitals stable. She states her pain is controlled. States she is ambulating within her room without difficulty. Endorses flatus. Tolerating diet without nausea or vomiting. Reports vaginal bleeding about the amount of a normal period for her. Denies fevers, chest pain, dyspnea. without issues. She is not desiring contraception at this time. Her only other complaint is of heartburn last night. Objective Vitals/I&O Vital Signs Date Time Temp Pulse Resp B/P (MAP) Pulse Ox O2 Delivery O2 Flow Rate FiO2 09/21/17 07:50 98.1 65 16 111/64 (80) 09/21/17 05:40 16 09/21/17 04:06 98.0 56 18 110/69 (83) 09/21/17 03:00 16 09/21/17 00:06 97.7 65 18 127/76 (93) 09/20/17 22:36 18 09/20/17 21:36 18 09/20/17 20:50 18 09/20/17 19:56 98.1 67 18 105/55 (72) 09/20/17 15:21 97.5 09/20/17 15:21 112/64 (80) 09/20/17 15:21 57 16 09/20/17 14:40 18 09/20/17 14:40 53 116/88 (97) Result Diagram: 09/21/17 0527 Objective Remarks GENERAL: Well-nourished, well-developed patient. CARDIOVASCULAR: Regular rate and rhythm without murmurs, gallops, or rubs. RESPIRATORY: Breath sounds equal bilaterally. No accessory muscle use. ABDOMEN/GI: Abdomen soft, non-tender, bowel sounds present. Incision: Clean, dry and intact. Steri strips present. Fundus: Firm, non-tender at umbilicus. GENITOURINARY: Light to moderate bleeding. EXTREMITIES: No cyanosis or edema, non-tender, without signs of DVT. Medications and IVs Current Medications Medications (Trade) Dose Ordered Sig/Amanda Route Start Time Stop Time Status Last Admin Lactated Ringer's 1,000 ml @ 100 mls/hr Q10H IV 09/20/17 17:09 09/21/17 13:08 Oxytocin 500 ml @ 100 mls/hr UNSCH X1 PRN IV 09/20/17 17:15 09/21/17 17:14 (NS Flush) 2 ml BID IV FLUSH 09/20/17 21:00 (NS Flush) 2 ml UNSCH PRN IV FLUSH 09/20/17 12:15 (Mylicon Chew) 80 mg QID PRN PO 09/20/17 12:15 09/21/17 01:11 (Tylenol) 650 mg Q6H PRN PO 09/20/17 12:15 (Motrin) 600 mg Q6H PRN PO 09/20/17 12:15 09/21/17 07:52 (Toradol Inj) 60 mg UNSCH X1 PRN IM 09/20/17 12:15 09/21/17 12:14 (Toradol Inj) 30 mg Q6H PRN IM 09/20/17 12:15 09/21/17 12:14 (Percocet 5-325 Mg) 1 tab Q4H PRN PO 09/20/17 12:15 09/20/17 20:50 (Percocet 5-325 Mg) 2 tab Q4H PRN PO 09/20/17 12:15 09/21/17 07:52 (Linda-Colace) 2 tab Q12H PRN PO 09/20/17 12:15 09/21/17 01:10 (Ambien) 5 mg HS PRN PO 09/20/17 12:15 (M-M-R Ii Inj) 0.5 ml ONCE ONCE SQ 09/21/17 16:00 09/21/17 16:01 (Boostrix Inj) 0.5 ml ONCE ONCE IM 09/21/17 16:00 09/21/17 16:01 (Zofran Inj) 4 mg Q6H PRN IV PUSH 09/20/17 12:15 Assessment/Plan Problem List: (1) care following delivery ICD Codes: Z39.2 - Encounter for routine follow-up Assessment and Plan 27 year old now POD#1 s/p repeat . 1. Postoperative care - AFVSS - Incision c/d/i - Postop H/H 10.4, from 10.9 - without issues - Continue Percocet or Motrin prn pain - Encouraged ambulation, as tolerated - Advised pelvic rest x 6 weeks - Contraception: not desiring at this time - Patient will follow up with her OB provider within one week after hospital discharge - Dispo: Anticipate discharge home in 1-2 days wdw OB Hospitalist Cr Nieves MD R2 Sep 21, 2017 08:41
[2017-09-21] MEDS ORDERED: ALUMINUM/MAGNESIUM/SIMETH 30 ML CUP PO PRN (09:30)
[2017-09-21] MEDS ORDERED: MEASLES, MUMPS, RUBELLA VACCINE 0.5 ML VIAL SQ ONE (16:00)
[2017-09-21] MEDS ORDERED: DIPHTH/TETANUS/ACEL PERTUSSIS (BOOSTER) 0.5 ML VIAL/PFS IM ONE (16:00)
[2017-09-21 20:13] VITALS: BP 119/67; PULSE 71; RESP 18; TEMP 98.4
[2017-09-21] MEDS: SODIUM CHLORIDE 0.9% FLUSH 10 ML FLUSH IV FLUSH SCH (21:00)
[2017-09-22] MEDS: oxyCODONE/ACETAMINOPHEN 5 MG/325 MG TAB PO PRN ×3 (04:43→14:23)
[2017-09-22] MEDS: IBUPROFEN 600 MG TAB PO PRN ×2 (04:44→11:13)
[2017-09-22 08:00] VITALS: BP 104/64; PULSE 85; RESP 20; TEMP 98.8; O2SAT 96
[2017-09-22] MEDS ORDERED: OXYC1TAB63 PO (09:25)
[2017-09-22] MEDS ORDERED: IBUP-232 PO (09:25)
[2017-09-22] MEDS ORDERED: PERI PO (09:25)
--- NOTE | 2017-09-22 09:26 | HHI.DCPOC ---
Discharge Care Plan Diagnosis: (1) care following delivery Report Symptoms to Your Doctor -Temperature above 100.5 degrees -Redness, of incision or excessive or foul smelling drainage -Unusual pain or calf pain -Increased vaginal bleeding -Painful or difficulty urinating -Feelings of extreme sadness or anxiety after 2 weeks Goals to Promote Your Health * To prevent worsening of your condition and complications * To maintain your health at the optimal level Directions to Meet Your Goals Take your medications as prescribed Follow your dietary instruction Follow activity as directed Ensure plenty of rest for recovery Drink fluids for hydration Keep your appointments as scheduled Take your immunizations and boosters as scheduled If your symptoms worsen call your PCP, if no PCP go to Urgent Care Center or Emergency Room Smoking is Dangerous to Your Health. Avoid second hand smoke Call the 24-hour crisis hotline for domestic abuse at Chacha Scales MD R1 Sep 22, 2017 09:26
--- NOTE | 2017-09-22 09:55 | HHI.OB ---
Subjective Remarks Patient seen and examined this morning. Afebrile, vitals stable. She states her pain is controlled. States she is ambulating within her room without difficulty. Endorses flatus. Tolerating diet without nausea or vomiting. Reports vaginal bleeding about the amount of a normal period for her. Denies fevers, chest pain, dyspnea. without issues. She is not desiring contraception at this time. Objective Vitals/I&O Vital Signs Date Time Temp Pulse Resp B/P (MAP) Pulse Ox O2 Delivery O2 Flow Rate FiO2 09/22/17 08:00 104/64 (77) 09/22/17 08:00 98.8 85 20 96 09/21/17 20:13 98.4 71 18 119/67 (84) Result Diagram: 09/21/17 0527 Objective Remarks GENERAL: Well-nourished, well-developed patient. CARDIOVASCULAR: Regular rate and rhythm without murmurs, gallops, or rubs. RESPIRATORY: Breath sounds equal bilaterally. No accessory muscle use. ABDOMEN/GI: Abdomen soft, non-tender, bowel sounds present. Incision: Clean, dry and intact. Steri strips present. Fundus: Firm, non-tender at umbilicus. GENITOURINARY: Light to moderate bleeding. EXTREMITIES: No cyanosis or edema, non-tender, without signs of DVT. Medications and IVs Current Medications Medications (Trade) Dose Ordered Sig/Amanda Route Start Time Stop Time Status Last Admin (NS Flush) 2 ml BID IV FLUSH 09/20/17 21:00 (NS Flush) 2 ml UNSCH PRN IV FLUSH 09/20/17 12:15 (Mylicon Chew) 80 mg QID PRN PO 09/20/17 12:15 09/21/17 21:56 (Tylenol) 650 mg Q6H PRN PO 09/20/17 12:15 (Motrin) 600 mg Q6H PRN PO 09/20/17 12:15 09/22/17 04:44 (Percocet 5-325 Mg) 1 tab Q4H PRN PO 09/20/17 12:15 09/22/17 09:36 (Percocet 5-325 Mg) 2 tab Q4H PRN PO 09/20/17 12:15 09/22/17 04:43 (Linda-Colace) 2 tab Q12H PRN PO 09/20/17 12:15 09/21/17 01:10 (Ambien) 5 mg HS PRN PO 09/20/17 12:15 (Zofran Inj) 4 mg Q6H PRN IV PUSH 09/20/17 12:15 (Mag-Al Plus Susp Liq) 15 ml Q8H PRN PO 09/21/17 09:30 09/21/17 12:53 Assessment/Plan Problem List: (1) care following delivery ICD Codes: Z39.2 - Encounter for routine follow-up Assessment and Plan 27 year old now POD#2 s/p repeat . 1. Postoperative care - AFVSS - Incision c/d/i - Postop H/H 10.4, from 10.9 - without issues - Continue Percocet or Motrin prn pain - Encouraged ambulation, as tolerated - Advised pelvic rest x 6 weeks - Contraception: not desiring at this time - Patient will follow up with her OB provider within one week after hospital discharge - Dispo: Anticipate discharge home today wdw OB Hospitalist Chacha Scales MD R1 Sep 22, 2017 09:55
== END 2017-09-22 15:59 | disposition home or self-care (01) | DRG 766 ==
LOC: H2EB 08:39 → H1EA 13:30
PROVIDERS: ADMIT Obstetrics & Gynecology Obstetrics; ATTEND Obstetrics & Gynecology Obstetrics
PROC: 10D00Z1 Extraction of Products of Conception, Low, Open Approach (ICD-10-PCS; principal; 2017-09-20)
DX: O34.211 Maternal care for low transverse scar from previous cesarean delivery (principal); F17.210 Nicotine dependence, cigarettes, uncomplicated; O99.334 Smoking (tobacco) complicating childbirth; Z88.0 Allergy status to penicillin; Z3A.39 39 weeks gestation of pregnancy; Z37.0 Single live birth
CPT/HCPCS: 59025; 80307; 81001; 85025; 86850; 86900; 86901; 90715; G0481; J0131; J2274; J7120